=== PATIENT | female | born 1985 | race Two or more races ===

== ENCOUNTER → 2016-09-17 | Outpatient (CLI) | payer OTHER ==
[2016-09-17 13:45] LABS: MICROSCOPIC INDICATED? MAN YES (NO)
[2016-09-17 13:49] LABS: BASO % 0.5 % (0.0-1.0); EOS # 0.1 K/mm3 (0.0-0.50); EOS % 2.1 % (0.0-3.0); LARGE UNSTAINED CELL # 0.1 K/mm3 (0.0-0.4); LARGE UNSTAINED CELL % 1.3 % (0.0-4.0); LYMPH # 1.5 K/mm3 (1.5-4.5); LYMPH % 28.3 % (24.0-44.0); MEAN CORPUSCULAR HEMOGLOBIN 29.1 pg (27.0-33.0); MEAN CORPUSCULAR HGB CONC 33.4 g/dl (32.0-36.5); MEAN CORPUSCULAR VOLUME 87.1 fl (80.0-96.0); MONO # 0.3 K/mm3 (0.0-0.8); MONO % 6.1 % (0.0-5.0); NEUTROPHILS # 3.2 K/mm3 (1.8-7.7); NEUTROPHILS % 61.8 % (36.0-66.0); PLATELET COUNT, AUTOMATED 237 k/mm3 (150-450); RED CELL DISTRIBUTION WIDTH 11.8 % (11.5-14.5); WHITE BLOOD COUNT 5.1 K/mm3 (4.0-10.0)
[2016-09-17 13:54] LABS: BACTERIA, URINE LARGE AMOUNT; MICROSCOPIC EXAM PERFORMED; SQUAMOUS EPITHELIAL CELL URINE SMALL AMOUNT /hpf (SMALL AMT)
[2016-09-17 14:08] LABS: ALBUMIN 3.6 GM/DL (3.2-5.2); ALBUMIN/GLOBULIN RATIO 0.86 (1.00-1.93); ALKALINE PHOSPHATASE 66 U/L (45-117); ALT/SGPT 13 U/L (12-78); ANION GAP 9 MEQ/L (8-16); AST/SGOT 11 U/L (15-37); BILIRUBIN,TOTAL 0.4 MG/DL (0.2-1.0); BLOOD UREA NITROGEN 13 MG/DL (7-18); CALCIUM LEVEL 8.9 MG/DL (8.5-10.1); CARBON DIOXIDE LEVEL 27 MEQ/L (21-32); CHLORIDE LEVEL 103 MEQ/L (98-107); CREATININE FOR GFR 0.86 MG/DL (0.55-1.02); GLOMERULAR FILTRATION RATE > 60.0 (>60); GLUCOSE, FASTING 89 MG/DL (70-105); POTASSIUM SERUM 4.1 MEQ/L (3.5-5.1); SODIUM LEVEL 139 MEQ/L (136-145); TOTAL PROTEIN 7.8 GM/DL (6.4-8.2)
== END ==
LOC: M SMT 08:23
PROVIDERS: ATTEND Physician Assistant Medical
DX: Z13.0 Encounter for screening for diseases of the blood and blood-forming organs and certain disorders involving the immune mechanism (principal); Z13.29 Encounter for screening for other suspected endocrine disorder; R30.0 Dysuria

== ENCOUNTER → 2016-12-26 | Outpatient (CLI) | payer OTHER ==
--- NOTE | 2016-12-26 09:48 | REP ---
Pelvic ultrasound including transabdominal, endovaginal and Doppler ultrasound assessment. There are no images available from comparison studies. However, there is a transcribed report of a prior study performed in [facility]. There is prior study describes a solid right ovarian mass measuring 2.7 x 2.6 x 2.0 cm, possibly a dermoid. Additionally 1.3 cm fibroid was identified in the posterior myometrium. On the study today the uterus is retroverted as previously. The uterus is normal size measuring 8.3 x 5.5 x 6.5 cm. Is a fibroid in the posterior myometrium measuring 2.3 x 1.7 x 1.1 cm per. The endometrium measures up to 15 mm and is mildly thickened and diffusely homogeneous compatible with secretory endometrium. In the right ovary there is a 3.3 x 2.6 x 1.7 cm solid mass. The right ovary is normal size measuring 4.0 x 1.9 x 3.1 cm. There is vascular flow in the right ovary with the Doppler resistive index of the intraparenchymal arteries measuring 0.61. In the left ovary. There is a 1.5 cm dominant follicle. Additionally there are two hemorrhagic follicles measuring 1.2 cm and 1.0 cm. The left ovary is normal size measuring 4.5 x 2.0 x 2.6 cm. There is vascular flow in the left ovary with the Doppler resistive index of the intraparenchymal arteries measuring 0.46. If there is a mild lumbar free fluid in the posterior cul-de-sac. Impression: There is a 3.3 cm right ovarian solid mass. This is indeterminate. No calcifications are identified by ultrasound. In the left ovary there is a dominant follicle and there are two hemorrhagic follicles. The endometrium is thickened and is homogeneous, compatible with secretory endometrium. There is a 2.3 cm fibroid in the posterior myometrium. Signed by Bryan Christina MD 12/26/2016 09:40 A
== END ==
LOC: M RAD 07:52
PROVIDERS: ATTEND Obstetrics & Gynecology
DX: D39.11 Neoplasm of uncertain behavior of right ovary (principal); N83.02 Follicular cyst of left ovary